=== PATIENT | male | born 1975 | race Caucasian/White ===

== ENCOUNTER → 2024-03-06 15:10 | Outpatient (BNVA) | payer BC, SELFPAY | PROVIDERS: Family Provider Family Medicine; Visit Provider Family Medicine | DX: I10 Essential (primary) hypertension (principal); D72.829 Elevated white blood cell count, unspecified; E11.9 Type 2 diabetes mellitus without complications | CPT/HCPCS: 80053; 80061; 83036; 85007; 85027 ==

== ENCOUNTER → 2024-07-10 14:58 | Outpatient (BNVA) | payer BC, SELFPAY | PROVIDERS: Family Provider Family Medicine; Visit Provider Family Medicine | DX: M25.50 Pain in unspecified joint (principal); G62.9 Polyneuropathy, unspecified; T14.8XXA Other injury of unspecified body region, initial encounter; D72.829 Elevated white blood cell count, unspecified | CPT/HCPCS: 82310; 82607; 82746; 83970; 84443; 85007; 85027; 85651; 86038; 86140 ==

== ENCOUNTER → 2024-08-12 13:52 | Outpatient (BNVA) | payer BC, SELFPAY | PROVIDERS: Family Provider Family Medicine; PCP Family Medicine; Referring Provider Family Medicine; Visit Provider Family Medicine | DX: M25.50 Pain in unspecified joint (principal); D72.829 Elevated white blood cell count, unspecified | CPT/HCPCS: 85007; 85027; 86431 ==

== ENCOUNTER → 2024-08-13 15:36 | Outpatient (BNVA) | payer BC, SELFPAY | PROVIDERS: Family Provider Family Medicine; PCP Family Medicine; Referring Provider Family Medicine; Visit Provider Family Medicine | DX: M25.50 Pain in unspecified joint (principal); D72.829 Elevated white blood cell count, unspecified | CPT/HCPCS: 80503 ==

== ENCOUNTER 2024-10-30 13:53 | Oncology outpatient (recurring) (ONCR) | payer BC, SELFPAY ==
[2024-10-30 15:11] LABS: Basophils # 0.1 10^3/uL (0.0-0.1); Basophils % 0.8 %; Eosinophils # 0.2 10^3/uL (0.0-0.8); Hematocrit 43.4 % (37-53); Lymphocytes % 17.4 %; Mean Corpuscular HGB Conc 33.4 g/dL (30-55); Mean Corpuscular Hemoglobin 30.4 pg (27-33); Mean Platelet Volume 9.6 fL (7.4-10.4); Monocytes # 1.2 10^3/uL (0.2-0.9); Monocytes % 10.6 %; Neutrophils # 7.75 10^3/uL (1.8-7.7); Neutrophils % 68.8 %; Nucleated Red Blood Cells % 0 %; Platelet Count 302 10^3/cmm (157-399); Red Blood Count 4.77 10^6/uL (3.85-5.65); Red Cell Distribution Width 13.4 % (12.1-15.1); Reticulocyte % 1.9 % (0.5-2.0); White Blood Count 11.25 10^3/uL (3.29-11.43)
[2024-10-30 15:19] LABS: Erythrocyte Sedimentation Rate 28 mm/hr (0-10)
[2024-10-30 15:27] LABS: Alanine Aminotransferase 25 U/L (0-41); Albumin Level 3.8 g/dL (3.5-5.2); Alkaline Phosphatase 85 U/L (40-130); Aspartate Amino Transferase 18 U/L (0-40); Blood Urea Nitrogen 12 mg/dL (6-20); C Reactive Protein 10.9 mg/L (0.0-4.9); Carbon Dioxide 28 mmol/L (22-29); Chloride 96 mmol/L (98-107); Creatinine Clr Calc Pharmacy 196.9203; Globulin 3.2 g/dL (1.3-4.6); Glomerular Filtration Rate 118.9 mL/min (90-130); Glucose 116 mg/dL (65-115); Osmolality Calculated 279 mOsm/kg (285-295); Sodium 134 mmol/L (136-145); Total Bilirubin 0.2 mg/dL (0.15-1.2); Uric Acid 5.3 mg/dL (3.4-7.0)
[2024-10-31 15:01] LABS: Leukemia Profile (BBPL) See Report
[2024-11-02 19:49] LABS: P190 BCR ALB1 NOT DETECTED; P190 BCR ALB1 Yes Test Yes; P210 BCR ALB1 NOT DETECTED; P210 BCR ALB1 Yes Test Yes; Prior Results BLOOD; Source blood
== END 2024-11-22 23:59 | disposition home or self-care (01) ==
LOC: ONCMED 13:54
PROVIDERS: Family Provider Family Medicine; PCP Family Medicine; Visit Provider Internal Medicine
DX: D72.829 Elevated white blood cell count, unspecified (principal); J45.20 Mild intermittent asthma, uncomplicated; G47.33 Obstructive sleep apnea (adult) (pediatric)
CPT/HCPCS: 36415; 71046; 80053; 81206; 81207; 84550; 85025; 85045; 85651; 86140; 88184; 88185

== ENCOUNTER 2024-11-21 08:50 | Outpatient (CLI) | payer BC, SELFPAY ==
--- NOTE | 2024-11-21 08:54 | US_ITS ---
WS: [id number] Complete ABDOMINAL ULTRASOUND HISTORY: leukocytosis COMPARISON: None available. Technically very limited abdominal ultrasound due to body habitus. Liver: 19.1 cm in length. Moderate thyromegaly. The entire liver is poorly visualized. Suspect hepatic steatosis. Mass would be difficult to exclude. Portal Vein: Normal hepatopetal flow with monophasic waveform. Gallbladder: Normally distended with cholelithiasis. Numerous stones in the gallbladder. No gallbladder wall thickening or pericholecystic fluid. CBD: 0.5 cm Pancreas: Obscured. Right kidney: 10.4 cm x 5.8 x 6.7 cm. Cortex:1.3 cm. Poorly visualized. No hydronephrosis. Left kidney: 10.5 cm x 4.7 cm x 6.9 cm. Cortex: 1.4 cm. Poorly visualized. No hydronephrosis. Spleen: 11.6 cm. Normal size spleen with granulomata. Aorta and IVC: Unremarkable abdominal aorta and IVC. US/US abdomen complete* [id number] Impression: 1. Limited abdominal ultrasound due to body habitus. 2. Cholelithiasis without acute cholecystitis. 3. Moderate hepatomegaly. Hepatic steatosis suspected. 4. No hydronephrosis.
== END 2024-11-21 08:51 | disposition home or self-care (01) ==
PROVIDERS: Family Provider Family Medicine; PCP Family Medicine; Visit Provider Internal Medicine
DX: D72.829 Elevated white blood cell count, unspecified (principal); J45.20 Mild intermittent asthma, uncomplicated; G47.33 Obstructive sleep apnea (adult) (pediatric); K80.20 Calculus of gallbladder without cholecystitis without obstruction; R16.0 Hepatomegaly, not elsewhere classified; R93.2 Abnormal findings on diagnostic imaging of liver and biliary tract; D73.89 Other diseases of spleen
CPT/HCPCS: 76700